=== PATIENT | female | born 1985 | race Caucasian/White ===

== ENCOUNTER 2019-03-06 10:35 | Observation (INO) | payer OTHER ==
[2019-03-06 11:36] VITALS: PULSE 111
[2019-03-06 12:30] LABS: Appearance CLEAR (CLEAR); Bilirubin NEGATIVE (NEGATIVE); Blood NEGATIVE Ery/ul (0-5); Glucose 50 mg/dL (NEGATIVE); Ketones TRACE (NEGATIVE); Leukocyte Esterase NEGATIVE (NEGATIVE); Mucus SLIGHT /HPF (NEGATIVE); Nitrite NEGATIVE (NEGATIVE); Protein,Urine Dip 30 (Negative); Specific Gravity 1.024 (1.005-1.025); Urobilinogen NEGATIVE mg/dL (0-1)
[2019-03-06] MEDS ORDERED: Lactated Ringers 1,000 ML IV SCH (13:00)
[2019-03-06 13:12] LABS: Amphetamine,Urine NEGATIVE (NEGATIVE); Barbiturate,Urine NEGATIVE (NEGATIVE); Benzodiazepine,Urine NEGATIVE (NEGATIVE); Cocaine,Urine NEGATIVE (NEGATIVE); Methadone,Urine NEGATIVE (NEGATIVE); Opiate,Urine NEGATIVE (NEGATIVE); PCP,Urine NEGATIVE (NEGATIVE); THC,Urine NEGATIVE (NEGATIVE)
[2019-03-06 16:33] VITALS: BP 132/60
--- NOTE | 2019-03-06 20:09 | XRAY ---
Indication: labor. Evaluate cervical length and heart rate. 2-dimensional Limited OB ultrasound performed. Comparison: None for this . Triplet . heart rate for baby A is 165 bpm. Baby B is 153 BPM. Baby C is 168 bpm. Cervical length is 3.7 cm. Comment: Preliminary report was given.
== END 2019-03-06 17:08 | disposition home or self-care (01) ==
LOC: OB 10:35
PROVIDERS: ADMIT Family Medicine; ATTEND Family Medicine
DX: O60.03 Preterm labor without delivery, third trimester (principal); O30.103 Triplet pregnancy, unspecified number of placenta and unspecified number of amniotic sacs, third trimester; Z3A.28 28 weeks gestation of pregnancy
CPT/HCPCS: 76817; 80307; 81001; 83986; G0378

== ENCOUNTER 2024-04-18 22:04 | Emergency (ER) | payer OTHER ==
[2024-04-18] MEDS ORDERED: LOPRESSOR INJECTION IV ONE ×2 (22:11→23:27)
--- NOTE | 2024-04-18 22:12 | ERPHSYRPT ---
- History of Present Illness Time Seen by Provider: 04/18/24 22:11 Source: patient, family Exam Limitations: no limitations Physician History: This is a 38-year-old overweight white female patient of Dr. Levin who has been exposed to individuals of family that have had flulike symptoms. Patient states she has been coughing intermittently for 10 days. Patient has not been on a long road trip in a car or flying in a plane. She has no bleeding or clotting disorders. Today, the coughing became more persistent and she felt her heart racing and was short of breath. Patient also feels some chest pressure as well. Patient is allergic to codeine and oxycodone but has taken hydrocodone in the past without any difficulties. Patient is a diabetic on metformin. Patient also states she has generalized arthralgias and myalgias. Timing/Duration: today (Worse today), day(s) (10), worse (Symptoms worse today) Severity of Dyspnea-Max: mild (To moderate) Severity of Dyspnea-Current: mild (To moderate) Possible Cause: no prior episodes Modifying Factors: Improves With: coughing, deep breath Associated Symptoms: anxiety, cough, chest pain/discomfort (Describes as a central, nonradiating pressure) Allergies/Adverse Reactions: codeine [Codeine] Allergy (Verified 04/18/24 22:16) Nausea and Vomiting states during oxycodone Adverse Reaction (Intermediate, Verified 04/18/24 22:16) Nausea and Vomiting Home Medications: Vits W-Ca,Fe,FA(<1Mg) [] 1 tab PO DAILY 07/11/16 [History] Multivitamin [Multivitamins] 1 tab PO DAILY 08/27/16 [History] Hx Tetanus, Diphtheria Vaccination/Date Given: Yes Hx Influenza Vaccination/Date Given: No Hx Pneumococcal Vaccination/Date Given: No Travel Risk - International Travel Have you traveled outside of the country in past 3 weeks: No - Emerging Infectious Disease Are you exhibiting symptoms associated with any current EIDs: Yes Symptoms: Cough: New Onset, Shortness of Breath - Review of Systems Constitutional: No Symptoms Eyes: No Symptoms Ears, Nose, & Throat: No Symptoms Respiratory: Cough, Dyspnea Cardiac: Chest Pain (Described as a pressure), Palpitations (Patient feels her heart racing) Abdominal/Gastrointestinal: No Symptoms Genitourinary Symptoms: No Symptoms Musculoskeletal: Arthralgias, Myalgias Skin: No Symptoms Neurological: No Symptoms Psychological: No Symptoms Endocrine: No Symptoms Hematologic/Lymphatic: No Symptoms Immunological/Allergic: No Symptoms All Other Systems: Reviewed and Negative - Past Medical History Pertinent Past Medical History: No Neurological History: No Pertinent History ENT History: No Pertinent History Cardiac History: No Pertinent History Respiratory History: No Pertinent History Endocrine Medical History: No Pertinent History Musculoskeletal History: Fractures GI Medical History: No Pertinent History History: No Pertinent History Psycho-Social History: No Pertinent History Female Reproductive Disorders: No Pertinent History Other Medical History: back problems after epidural some higher bp during , some high blood sugar during - Past Surgical History Past Surgical History: Yes Neuro Surgical History: No Pertinent History Cardiac: No Pertinent History Respiratory: No Pertinent History Gastrointestinal: Exploratory Laparoscopy Genitourinary: No Pertinent History Musculoskeletal: No Pertinent History Female Surgical History: No Pertinent History Other Surgical History: rt toe surgery--and then pins removed. - Female History Hx Last Menstrual Period: sep 24 - Social History Smoking Status: Never smoker Exposure to second hand smoke: Yes Drug Use: none Patient Lives Alone: No - Nursing Vital Signs Nursing Vital Signs: Initial Vital Signs Temperature 97.9 F 04/18/24 22:07 Pulse Rate 155 H 04/18/24 22:07 Respiratory Rate 22 04/18/24 22:07 Blood Pressure 152/98 04/18/24 22:07 O2 Sat by Pulse Oximetry 98 04/18/24 22:07 Pain Scale Pain Intensity 7 - Physical Exam General Appearance: no apparent distress, alert, anxiety, obese Eye Exam: PERRL/EOMI, eyes nml inspection Ears, Nose, Throat Exam: hearing grossly normal, normal ENT inspection, normal pharynx Neck Exam: normal inspection, non-tender, supple, full range of motion Respiratory Exam: normal breath sounds, lungs clear, airway intact, No chest tenderness, No respiratory distress Cardiovascular/Chest Exam: tachycardia Abdominal/Gastrointestinal Exam: soft, normal bowel sounds, tenderness Rectal Exam: not done Extremity Exam: non-tender, normal range of motion, normal inspection Neurologic Exam: alert, oriented x 3, cooperative, custom dressmaker II-XII nml as tested, nml cerebellar function, nml station & gait, sensation nml Skin Exam: normal color, warm, dry Lymphatic Exam: No adenopathy SpO2 Interpretation: normal O2 Delivery: Room Air - Course Nursing assessment & vital signs reviewed: Yes EKG Interpreted by Me: RATE ([id number]), Sinus Tach, NORMAL AXIS, NORMAL INTERVALS, NORMAL QRS, Other (No acute ischemic changes on today's twelve-lead EKG) Ordered Tests: Active Orders 24 hr Category Date Time Status Library Circulation Assistant STAT Care 04/18/24 22:12 Active EKG-ER Only STAT Care 04/18/24 22:12 Active IV Insertion STAT Care 04/18/24 22:12 Active Pulse Oximetry (ED) STAT Care 04/18/24 22:12 Active CHEST WITH CONTRAST [CT] Stat Exams 04/18/24 23:15 Completed CBC W DIFF Stat Lab 04/18/24 22:10 Completed CMP Stat Lab 04/18/24 22:10 Completed D-DIMER QUANTITATIVE Stat Lab 04/18/24 22:10 Completed Lactic Acid Stat Lab 04/18/24 22:12 Completed MAGNESIUM Stat Lab 04/18/24 22:10 Completed NT PRO BNPII Stat Lab 04/18/24 22:10 Completed TROPONIN Q4H Lab 04/18/24 22:10 Completed TROPONIN Q4H Lab 04/19/24 02:15 Ordered TROPONIN Q4H Lab 04/19/24 06:15 Ordered TSH [TSH, 3RD Generation] Stat Lab 04/19/24 01:20 Ordered UA W/RFX UR CULTURE Stat Lab 04/19/24 00:58 Completed Holter Monitor ONCE RT 04/19/24 00:34 Active Medication Summary Discontinued Medications Generic Name Dose Route Start Last Admin Trade Name Freq PRN Reason Stop Dose Admin Hydrocodone Bitart/Acetaminophen 10 ml 04/18/24 22:13 04/18/24 22:21 Hydrocodone/Acetaminophen 5 Ml Udcup PO 04/18/24 22:14 10 ml STAT STA Administration Hydrocodone Bitart/Acetaminophen Confirm 04/18/24 22:18 Hydrocodone/Acetaminophen 5 Ml Udcup Administered 04/18/24 22:19 Dose 5 ml .ROUTE .STK-MED ONE Hydrocodone Bitart/Acetaminophen Confirm 04/18/24 22:21 Hydrocodone/Acetaminophen 5 Ml Udcup Administered 04/18/24 22:22 Dose 5 ml .ROUTE .STK-MED ONE Methylprednisolone Sodium 0 mg 04/18/24 22:12 04/18/24 22:23 Succinate 125 mg/ Sterile IV 04/18/24 22:13 125 mg Water 2 ml STAT ONE Administration Sodium Chloride 1,000 mls @ 999 mls/hr 04/18/24 23:19 04/18/24 23:31 Sodium Chloride 0.9% 1000 Ml IV 04/19/24 00:19 999 mls/hr .Q1H1M STA Administration Sodium Chloride Confirm 04/18/24 23:27 Sodium Chloride 0.9% 1000 Ml Administered 04/18/24 23:28 Dose 1,000 mls @ ud .ROUTE .STK-MED ONE Methylprednisolone Sodium Succinate Confirm 04/18/24 22:19 Methylprednis Sod Succ 125 Mg/2 Ml Vial Administered 04/18/24 22:20 Dose 125 mg .ROUTE .STK-MED ONE Metoprolol Tartrate 5 mg 04/18/24 22:13 04/18/24 22:14 Metoprolol Tartrate 5 Mg/5 Ml Vial IV 04/18/24 22:14 5 mg STAT ONE Administration Metoprolol Tartrate Confirm 04/18/24 22:11 Metoprolol Tartrate 5 Mg/5 Ml Vial Administered 04/18/24 22:12 Dose 5 mg IV .STK-MED ONE Metoprolol Tartrate 5 mg 04/18/24 23:14 04/18/24 23:30 Metoprolol Tartrate 5 Mg/5 Ml Vial IV 04/18/24 23:15 5 mg STAT ONE Administration Metoprolol Tartrate Confirm 04/18/24 23:27 Metoprolol Tartrate 5 Mg/5 Ml Vial Administered 04/18/24 23:28 Dose 5 mg IV .STK-MED ONE Sterile Water Confirm 04/18/24 22:18 Water For Injection,Sterile 10 Ml Vial Administered 04/18/24 22:19 Dose 10 ml IJ .STK-MED ONE Lab/Rad Data: Laboratory Result Diagrams 04/18/24 22:10 04/18/24 22:10 Laboratory Results 04/19/24 04/18/24 04/18/24 Range/Units 00:58 22:20 22:12 WBC (3.98-10.04) x10^3/uL RBC (3.93-5.22) x10^6/uL Hgb (11.2-15.7) g/dL Hct (34.1-44.9) % MCV (79.4-94.8) fL MCH (25.6-32.2) pg MCHC (32.2-35.5) g/dL RDW (11.7-14.4) % Plt Count (182-369) x10^3/uL MPV (9.4-12.3) fL Gran % (34.0-71.1) % Immature Gran % (Auto) (0.001-0.429) % Nucleat RBC Rel Count (0.00-0.2) % Eos # (Auto) (0.04-0.36) x10^3/uL Immature Gran # (Auto) (0.001-0.031) x10^3u/L Absolute Lymphs (auto) (1.18-3.74) x10^3/uL Absolute Monos (auto) (0.24-0.86) x10^3/uL Absolute Nucleated RBC (0.00-0.012) x10^3u/L Lymphocytes % (19.3-51.7) % Monocytes % (4.7-12.5) % Eosinophils % (0.7-5.8) % Basophils % (0.1-1.2) % Absolute Granulocytes (1.56-6.13) x10^3/uL Basophils # (0.01-0.08) x10^3/uL D-Dimer (0.0-0.50) mg/L Sodium (135-145) mmol/L Potassium (3.5-5.1) mmol/L Chloride (98-107) mmol/L Carbon Dioxide (22-30) mmol/L Anion Gap (5-15) MEQ/L BUN (7-17) mg/dL Creatinine (0.52-1.04) mg/dL Estimated GFR ML/MIN Glucose (74-106) mg/dL Lactic Acid 3.1 H (0.4-2.0) Calcium (8.4-10.2) mg/dL Magnesium (1.6-2.3) mg/dL Total Bilirubin (0.2-1.3) mg/dL AST (14-36) U/L ALT (0-35) U/L Alkaline Phosphatase (38-126) U/L Troponin I (0.000-0.033) ng/mL NT-Pro-B Natriuret Pep (<300) pg/mL Serum Total Protein (6.3-8.2) g/dL Albumin (3.5-5.0) g/dL Urine Color Yellow (Yellow) Urine Appearance Clear (Clear) Urine pH 6.5 (4.6-8.0) Ur Specific [place] <=1.005 (1.005-1.030) Urine Protein Trace A (Negative) Urine Glucose (UA) Negative (Negative) mg/dL Urine Ketones Negative (Negative) Urine Blood Negative (Negative) Urine Nitrite Negative (Negative) Urine Bilirubin Negative (Negative) Urine Urobilinogen 0.2 (0.2) mg/dL Ur Leukocyte Esterase Negative (Negative) U Hyaline Cast (Auto) NONE SEEN (0-2) /LPF Urine Microscopic RBC 0-2 (0-5) /HPF Urine Microscopic WBC 0-2 (0-5) /HPF Ur Epithelial Cells None Seen (None Seen) /HPF Urine Bacteria None Seen (None Seen) /HPF Urine Culture Reflexed NO (NO) Influenza Type A Ag NEGATIVE (NEGATIVE) Influenza Type B Ag NEGATIVE (NEGATIVE) RSV (PCR) NEGATIVE (NEGATIVE) SARS-CoV-2 (PCR) NEGATIVE (NEGATIVE) 04/18/24 04/18/24 04/18/24 Range/Units 22:10 22:10 22:10 WBC (3.98-10.04) x10^3/uL RBC (3.93-5.22) x10^6/uL Hgb (11.2-15.7) g/dL Hct (34.1-44.9) % MCV (79.4-94.8) fL MCH (25.6-32.2) pg MCHC (32.2-35.5) g/dL RDW (11.7-14.4) % Plt Count (182-369) x10^3/uL MPV (9.4-12.3) fL Gran % (34.0-71.1) % Immature Gran % (Auto) (0.001-0.429) % Nucleat RBC Rel Count (0.00-0.2) % Eos # (Auto) (0.04-0.36) x10^3/uL Immature Gran # (Auto) (0.001-0.031) x10^3u/L Absolute Lymphs (auto) (1.18-3.74) x10^3/uL Absolute Monos (auto) (0.24-0.86) x10^3/uL Absolute Nucleated RBC (0.00-0.012) x10^3u/L Lymphocytes % (19.3-51.7) % Monocytes % (4.7-12.5) % Eosinophils % (0.7-5.8) % Basophils % (0.1-1.2) % Absolute Granulocytes (1.56-6.13) x10^3/uL Basophils # (0.01-0.08) x10^3/uL D-Dimer 0.56 H (0.0-0.50) mg/L Sodium 137 (135-145) mmol/L Potassium 4.0 (3.5-5.1) mmol/L Chloride 104 (98-107) mmol/L Carbon Dioxide 21 L (22-30) mmol/L Anion Gap 16.5 H (5-15) MEQ/L BUN 15 (7-17) mg/dL Creatinine 0.78 (0.52-1.04) mg/dL Estimated GFR 100.9 ML/MIN Glucose 162 H (74-106) mg/dL Lactic Acid (0.4-2.0) Calcium 9.2 (8.4-10.2) mg/dL Magnesium 1.9 (1.6-2.3) mg/dL Total Bilirubin 0.30 (0.2-1.3) mg/dL AST 32 (14-36) U/L ALT 38 H (0-35) U/L Alkaline Phosphatase 71 (38-126) U/L Troponin I < 0.012 (0.000-0.033) ng/mL NT-Pro-B Natriuret Pep 48.9 (<300) pg/mL Serum Total Protein 6.8 (6.3-8.2) g/dL Albumin 4.3 (3.5-5.0) g/dL Urine Color (Yellow) Urine Appearance (Clear) Urine pH (4.6-8.0) Ur Specific [place] (1.005-1.030) Urine Protein (Negative) Urine Glucose (UA) (Negative) mg/dL Urine Ketones (Negative) Urine Blood (Negative) Urine Nitrite (Negative) Urine Bilirubin (Negative) Urine Urobilinogen (0.2) mg/dL Ur Leukocyte Esterase (Negative) U Hyaline Cast (Auto) (0-2) /LPF Urine Microscopic RBC (0-5) /HPF Urine Microscopic WBC (0-5) /HPF Ur Epithelial Cells (None Seen) /HPF Urine Bacteria (None Seen) /HPF Urine Culture Reflexed (NO) Influenza Type A Ag (NEGATIVE) Influenza Type B Ag (NEGATIVE) RSV (PCR) (NEGATIVE) SARS-CoV-2 (PCR) (NEGATIVE) 04/18/24 Range/Units 22:10 WBC 12.8 H (3.98-10.04) x10^3/uL RBC 4.85 (3.93-5.22) x10^6/uL Hgb 12.8 (11.2-15.7) g/dL Hct 38.1 (34.1-44.9) % MCV 78.6 L (79.4-94.8) fL MCH 26.4 (25.6-32.2) pg MCHC 33.6 (32.2-35.5) g/dL RDW 13.0 (11.7-14.4) % Plt Count 300 (182-369) x10^3/uL MPV 9.8 (9.4-12.3) fL Gran % 50.3 (34.0-71.1) % Immature Gran % (Auto) 0.5 H (0.001-0.429) % Nucleat RBC Rel Count 0.0 (0.00-0.2) % Eos # (Auto) 0.60 H (0.04-0.36) x10^3/uL Immature Gran # (Auto) 0.06 H (0.001-0.031) x10^3u/L Absolute Lymphs (auto) 4.90 H (1.18-3.74) x10^3/uL Absolute Monos (auto) 0.77 (0.24-0.86) x10^3/uL Absolute Nucleated RBC 0.00 (0.00-0.012) x10^3u/L Lymphocytes % 38.3 (19.3-51.7) % Monocytes % 6.0 (4.7-12.5) % Eosinophils % 4.7 (0.7-5.8) % Basophils % 0.2 (0.1-1.2) % Absolute Granulocytes 6.42 H (1.56-6.13) x10^3/uL Basophils # 0.03 (0.01-0.08) x10^3/uL D-Dimer (0.0-0.50) mg/L Sodium (135-145) mmol/L Potassium (3.5-5.1) mmol/L Chloride (98-107) mmol/L Carbon Dioxide (22-30) mmol/L Anion Gap (5-15) MEQ/L BUN (7-17) mg/dL Creatinine (0.52-1.04) mg/dL Estimated GFR ML/MIN Glucose (74-106) mg/dL Lactic Acid (0.4-2.0) Calcium (8.4-10.2) mg/dL Magnesium (1.6-2.3) mg/dL Total Bilirubin (0.2-1.3) mg/dL AST (14-36) U/L ALT (0-35) U/L Alkaline Phosphatase (38-126) U/L Troponin I (0.000-0.033) ng/mL NT-Pro-B Natriuret Pep (<300) pg/mL Serum Total Protein (6.3-8.2) g/dL Albumin (3.5-5.0) g/dL Urine Color (Yellow) Urine Appearance (Clear) Urine pH (4.6-8.0) Ur Specific [place] (1.005-1.030) Urine Protein (Negative) Urine Glucose (UA) (Negative) mg/dL Urine Ketones (Negative) Urine Blood (Negative) Urine Nitrite (Negative) Urine Bilirubin (Negative) Urine Urobilinogen (0.2) mg/dL Ur Leukocyte Esterase (Negative) U Hyaline Cast (Auto) (0-2) /LPF Urine Microscopic RBC (0-5) /HPF Urine Microscopic WBC (0-5) /HPF Ur Epithelial Cells (None Seen) /HPF Urine Bacteria (None Seen) /HPF Urine Culture Reflexed (NO) Influenza Type A Ag (NEGATIVE) Influenza Type B Ag (NEGATIVE) RSV (PCR) (NEGATIVE) SARS-CoV-2 (PCR) (NEGATIVE) - Progress Progress: improved, re-examined Air Movement: good Progress Note: 04/18/24 22:46 My medical decision making and the assignment of moderate complexity to this patient's medical issue today is based on review the patient's past medical history, review the patient's medication list, review patient drug allergy list, history present illness and physical findings on examination. The workup in this patient includes placement of intravenous line, twelve-lead EKG, provide the patient with intravenous Lopressor, CBC, CMP, provide the patient low rate crystalloid, BNP, D-dimer level, troponin level, magnesium level, and CT scan of the chest with contrast if the D-dimer level returns elevated or chest x-ray if the D-dimer level is normal. Will also order free T4 and TSH levels. In addition, we will order viral swabs. 04/18/24 22:48 Differential diagnosis includes but is not limited to pneumonia, viral illness, myocardial infarction, electrolyte abnormalities, pulmonary embolus. 04/19/24 00:42 I interpreted the patient's laboratory data results. She did have an elevated D-dimer and therefore we ordered a CT scan of the chest with contrast to evaluate for any acute pulmonary issues such as pneumonia and/or pulmonary embolism. We are awaiting the urinalysis study. Clinically, the patient states she feels so much better now that heart rate has slowed down. I interpreted the repeat twelve-lead EKG that was performed on 04/19/2024 at 003 9 in the morning. Heart rate is 102 bpm and is sinus tachycardia with a QTc of 459. There is normal axis, normal intervals and normal QRS. QTc is 459. There is no evidence of any acute ischemia. 04/19/24 01:15 We are still waiting for the urinalysis result. The CT scan of the chest with contrast was interpreted by the radiologist and I reviewed the impression. The impression states no pulmonary embolus. No acute cardiopulmonary abnormality. There is left thyroid hypodense nodule. Ultrasound recommended. These results were discussed with the patient. 04/19/24 01:16 The patient has a heart score less than 4. She will follow-up with her primary care provider and a news broadcaster, if indicated, for further evaluation management. Blood Culture(s) Obtained: No Antibiotics given: No Counseled pt/family regarding: lab results, diagnosis, rad results Medical Desision Making - Independent Historian Additional History obtained from: Spouse - Diagnostic Testing Diagnostic test were ordered, analyzed, and reviewed by me: Yes Radiological Interpretation: Reviewed by me, Teleradiologist Report - Risk of complications Low Risk: Low risk of morbidity from additional dx testing or treatment - Departure Departure Disposition: Home Clinical Impression: Sinus tachycardia, Left thyroid nodule Condition: Stable Critical Care Time: No Critical Care Time(excluding separately billable procedures): Critical 30-74 mins (40 minutes) Referrals: CORIN LEVIN MD [Primary Care Provider] - Follow up/PCP as directed Additional Instructions: Follow directions for the Holter monitor care. Return the Holter monitor as instructed. Continue your medications as prescribed. Call your primary care provider today, 04/19/2024, to make arrangements for outpatient evaluation by both your primary care provider and, if indicated, a news broadcaster.
[2024-04-18] MEDS: LOPRESSOR INJECTION IV ONE ×2 (22:14→23:30)
[2024-04-18] MEDS ORDERED: HYDROCODONE-ACETAMIN 2.5-108/5 ML SOLUTION ONE ×2 (22:18→22:21)
[2024-04-18] MEDS ORDERED: Sterile H2O 10 ml IJ ONE (22:18)
[2024-04-18 22:19] VITALS: TEMP 97.9
[2024-04-18] MEDS ORDERED: solu-MEDROL ONE (22:19)
[2024-04-18] MEDS: HYDROCODONE-ACETAMIN 2.5-108/5 ML SOLUTION PO STA (22:21)
[2024-04-18] MEDS: solu-MEDROL 125 MG, Sterile H2O 10 ml 2 ML IV ONE (22:23)
[2024-04-18 22:24] LABS: Absolute Neutrophil Ct (ANC) 6.42 x10^3/uL (1.56-6.13); BASOPHIL % 0.2 % (0.1-1.2); Basophil (Absolute #) 0.03 x10^3/uL (0.01-0.08); Eosinophil % 4.7 % (0.7-5.8); Hematocrit 38.1 % (34.1-44.9); Hemoglobin 12.8 g/dL (11.2-15.7); IMMATURE GRAN # 0.06 x10^3u/L (0.001-0.031); IMMATURE GRAN % 0.5 % (0.001-0.429); Lymphocytes % 38.3 % (19.3-51.7); Mean Cell Volume 78.6 fL (79.4-94.8); Mean Corpuscular Hemoglobin 26.4 pg (25.6-32.2); Mean Corpuscular Hgb Concent. 33.6 g/dL (32.2-35.5); Mean Platelet Volume 9.8 fL (9.4-12.3); Monocyte (Absolute #) 0.77 x10^3/uL (0.24-0.86); Neutrophil % 50.3 % (34.0-71.1); Platelet Count 300 x10^3/uL (182-369); Red Blood Count 4.85 x10^6/uL (3.93-5.22); White Blood Count 12.8 x10^3/uL (3.98-10.04)
[2024-04-18 22:49] LABS: ALBUMIN 4.3 g/dL (3.5-5.0); ANION GAP 16.5 MEQ/L (5-15); BILIRUBIN,TOTAL 0.3 mg/dL (0.2-1.3); Calcium 9.2 mg/dL (8.4-10.2); Creatinine 1 0.78 mg/dL (0.52-1.04); EST GLOMERULAR FILTRATION RATE 100.9 ML/MIN; MAGNESIUM 1.9 mg/dL (1.6-2.3); NT PRO BNPII 48.9 pg/mL (<300); Total Protein 6.8 g/dL (6.3-8.2)
[2024-04-18 23:01] LABS: INFLUENZA A NEGATIVE (NEGATIVE); INFLUENZA B NEGATIVE (NEGATIVE); RESPIRATORY SYNCTIAL VIRUS NEGATIVE (NEGATIVE); SARS-CoV-2 Xpert Express NEGATIVE (NEGATIVE)
[2024-04-18] MEDS ORDERED: Sodium Chloride 0.9% 1000 ML 1,000 ML ONE (23:27)
[2024-04-18] MEDS: Sodium Chloride 0.9% 1000 ML 1,000 ML IV STA (23:31)
--- NOTE | 2024-04-19 01:13 | XRAY ---
CLINICAL HISTORY: CP; tachycardia; D-dimer elevated COMPARISON: none TECHNIQUE: Contiguous axial CT angiographic images of the chest were acquired with the administration of 100cc isovue-370 intravenous contrast with PE protocol. One of these 3D techniques was utilized: Maximum Intensity Pixel (MIP), 3D Reconstructed Images, Volume Rendered Images, Surface Shaded Rendering. One of the following dose reduction techniques were utilized for this exam: Automated exposure control, adjustment of the mA and/or kV according to patient size, use of iterative reconstruction?. FINDINGS: No evidence of any filling defect in the main pulmonary trunk, bilateral main pulmonary arteries, segmental arteries and subsegmental arteries to suggest acute or chronic pulmonary embolism. Patent thoracic aorta showing. No intraluminal hypodense thrombi, dissecting intimal flaps or significant aneurysmal dilatation. No obvious cardiac abnormalities detected. No obvious ground glass opacities, pulmonary masses or consolidations. No pleural or pericardial sac collections. No pathologically enlarged hilar or mediastinal lymph nodes are noted. Left thyroid lobe hypodense nodule. Advise sonography correlation. Scanned osseous structures show spondylosis. No osseous destruction. Scanned upper abdominal cuts show no obvious abnormalities. IMPRESSION: 1. No evidence of pulmonary arterial thromboembolism. 2. No acute cardiopulmonary abnormalities. 3. Left thyroid lobe hypodense nodule. Advise sonography correlation. Electronically Signed by: Leeann Noyola MD. (04/19/2024 01:09:23 EDT)
[2024-04-19 01:17] VITALS: PULSE 94; RESP 19
[2024-04-19 01:24] LABS: Appearance Clear (Clear); Bacteria None Seen /HPF (None Seen); Bilirubin Negative (Negative); Blood Negative (Negative); Epithelial Cells None Seen /HPF (None Seen); Glucose, Urine Negative (Negative); Hyaline Casts NONE SEEN /LPF (0-2); Ketones Negative (Negative); Leukocyte Esterase Negative (Negative); Nitrite Negative (Negative); Ph 6.5 (4.6-8.0); Protein,Urine Dip Trace (Negative); RBC 0-2 /HPF (0-5); Specific Gravity <=1.005 (1.005-1.030); Urobilinogen 0.2 mg/dL (0.2); WBC 0-2 /HPF (0-5)
[2024-04-19 01:26] LABS: ADD URINE CULTURE? NO (NO)
[2024-04-19 02:10] VITALS: BP 134/75; O2SAT 96
== END 2024-04-19 02:27 | disposition home or self-care (01) ==
LOC: ED 22:04
DX: R00.0 Tachycardia, unspecified (principal); E04.1 Nontoxic single thyroid nodule; R05.1 Acute cough; R07.9 Chest pain, unspecified; M79.10 Myalgia, unspecified site; M25.50 Pain in unspecified joint; E11.9 Type 2 diabetes mellitus without complications; Z79.84 Long term (current) use of oral hypoglycemic drugs; Z79.899 Other long term (current) drug therapy
CPT/HCPCS: 0241U; 36000; 36415; 71260; 80053; 81001; 83605; 83735; 83880; 84439; 84443; 84484; 85025; 85379; 93005; 93041; 94760; 96374; 96375; 96376; 99285; 99291; J2919; A9270-GY

== ENCOUNTER 2025-01-07 20:12 | Emergency (ER) | payer OTHER ==
--- NOTE | 2025-01-07 20:18 | ERPHSYRPT ---
- History of Present Illness Time Seen by Provider: 01/07/25 20:17 Source: patient, family Exam Limitations: no limitations Physician History: This is an overweight 39-year-old white female patient of Dr. Levin who arrives by private vehicle with the complaint of shortness of breath while driving home after work. It came on suddenly. She also complains of left-sided headache and numbness in her bilateral upper extremities. She is under stress but no more than typical for her. Her oldest child is in trouble legally. Patient did start a new thyroid medicine approximately 1 month ago. Patient has a history of hypertension, diabetes and thyroid abnormalities. Patient had similar symptoms in April 2024 and at that time she had sinus tachycardia and hypertension. In October 2024 she underwent a thyroid ultrasound which showed 2 right lobe and 1 left lobe indeterminate nodule. In April 2024 she underwent an echocardiogram which did show a patent ovale and a normal left ventricular ejection fraction of 85%. In April [address] scan of the chest with contrast which shows no pulmonary embolus and no acute cardiopulmonary abnormalities. Her room air oxygen saturation levels 97 to 98%. Timing/Duration: today Severity of Dyspnea-Max: mild Severity of Dyspnea-Current: mild Possible Cause: occasional episodes Modifying Factors: Improves With: nothing Associated Symptoms: anxiety, chest pain/discomfort, tingling face, tingling hands Allergies/Adverse Reactions: codeine [Codeine] Allergy (Verified 04/18/24 22:16) Nausea and Vomiting states during oxycodone Adverse Reaction (Intermediate, Verified 04/18/24 22:16) Nausea and Vomiting Home Medications: Multivitamin [Multivitamins] 1 tab PO DAILY 08/27/16 [History] Metformin HCl 500 mg [Glucophage 500 MG] 500 mg PO BIDWM 01/07/25 [History] Methimazole 2.5 mg PO DAILY 01/07/25 [History] Metoprolol Succinate 25 mg Xl* [Toprol-Xl 25MG Tablets] 25 mg PO DAILY 01/07/25 [History] Hx Tetanus, Diphtheria Vaccination/Date Given: Yes Hx Influenza Vaccination/Date Given: No Hx Pneumococcal Vaccination/Date Given: No Travel Risk - International Travel Have you traveled outside of the country in past 3 weeks: No - Emerging Infectious Disease Are you exhibiting symptoms associated with any current EIDs: Yes Symptoms: Cough: New Onset, Shortness of Breath - Review of Systems Constitutional: No Symptoms Eyes: No Symptoms Ears, Nose, & Throat: No Symptoms Respiratory: No Symptoms Cardiac: No Symptoms Abdominal/Gastrointestinal: No Symptoms Genitourinary Symptoms: No Symptoms Musculoskeletal: No Symptoms Skin: No Symptoms Neurological: Headache (Left side headache), Other (Tingling bilateral cheeks and bilateral upper extremities) Psychological: No Symptoms Endocrine: No Symptoms Hematologic/Lymphatic: No Symptoms Immunological/Allergic: No Symptoms All Other Systems: Reviewed and Negative - Past Medical History Pertinent Past Medical History: No Neurological History: No Pertinent History ENT History: No Pertinent History Cardiac History: No Pertinent History Respiratory History: No Pertinent History Endocrine Medical History: No Pertinent History Musculoskeletal History: Fractures GI Medical History: No Pertinent History History: No Pertinent History Psycho-Social History: No Pertinent History Female Reproductive Disorders: No Pertinent History Other Medical History: back problems after epidural some higher bp during , some high blood sugar during - Past Surgical History Past Surgical History: Yes Neuro Surgical History: No Pertinent History Cardiac: No Pertinent History Respiratory: No Pertinent History Gastrointestinal: Exploratory Laparoscopy Genitourinary: No Pertinent History Musculoskeletal: No Pertinent History Female Surgical History: No Pertinent History Other Surgical History: rt toe surgery--and then pins removed. - Female History Hx Last Menstrual Period: sep 24 - Social History Smoking Status: Never smoker Exposure to second hand smoke: Yes Drug Use: none Patient Lives Alone: No - Nursing Vital Signs Nursing Vital Signs: Initial Vital Signs Pulse Rate 104 H 01/07/25 20:13 Respiratory Rate 26 H 01/07/25 20:13 Blood Pressure 161/101 01/07/25 20:13 O2 Sat by Pulse Oximetry 100 01/07/25 20:13 Pain Scale Pain Intensity 0 - Physical Exam General Appearance: no apparent distress, alert, anxiety, obese Eye Exam: PERRL/EOMI, eyes nml inspection Ears, Nose, Throat Exam: hearing grossly normal, normal ENT inspection, normal pharynx Neck Exam: normal inspection, non-tender, supple, full range of motion Respiratory Exam: normal breath sounds, lungs clear, airway intact, No chest tenderness, No respiratory distress Cardiovascular/Chest Exam: normal heart sounds, regular rate/rhythm Abdominal/Gastrointestinal Exam: soft, normal bowel sounds, No tenderness Rectal Exam: not done Extremity Exam: non-tender, normal range of motion, normal inspection, normal capillary refill, no calf tenderness, no pedal edema, pelvis stable Neurologic Exam: alert, oriented x 3, cooperative, fish dressing machine feeder II-XII nml as tested, nml cerebellar function, nml station & gait, sensation nml Skin Exam: normal color, warm, dry Lymphatic Exam: No adenopathy SpO2 Interpretation: normal SpO2: 100 O2 Delivery: Room Air - Course Nursing assessment & vital signs reviewed: Yes EKG Interpreted by Me: RATE (102), Sinus Tach, NORMAL AXIS, NORMAL INTERVALS, NORMAL QRS, NORMAL ST-T, Other (No acute ischemia on today's twelve-lead EKG. QTc is 467. Comparison EKG dated 04/18/2024. Today's EKG shows improvement over the sinus tachycardia that was present on the 04/18/2024 twelve-lead EKG.) Ordered Tests: Active Orders 24 hr Category Date Time Status EKG-ER Only STAT Care 01/07/25 20:41 Active IV Insertion STAT Care 01/07/25 20:41 Active HEAD WITHOUT CONTRAST [CT] Stat Exams 01/07/25 21:46 Completed CBC W DIFF Stat Lab 01/07/25 20:49 Completed CMP Stat Lab 01/07/25 20:51 Completed CULTURE,URINE Stat Lab 01/07/25 21:33 Received D-DIMER QUANTITATIVE Stat Lab 01/07/25 20:51 Completed MAG [MAGNESIUM] Stat Lab 01/07/25 20:51 Completed NT PRO BNPII Stat Lab 01/07/25 20:51 Completed TROPONIN Q4H Lab 01/07/25 20:51 Completed TROPONIN Q4H Lab 01/08/25 00:45 Ordered TROPONIN Q4H Lab 01/08/25 04:45 Ordered TSH [TSH, 3RD Generation] Stat Lab 01/07/25 20:51 Completed UA W/RFX UR CULTURE Stat Lab 01/07/25 21:33 Completed Medication Summary Discontinued Medications Generic Name Dose Route Start Last Admin Trade Name Freq PRN Reason Stop Dose Admin Ceftriaxone Sodium 1 gm in 100 mls @ 200 mls/hr 01/07/25 21:52 01/07/25 22:38 Rocephin 1 Gm / 100 Ml Nacl IV 01/07/25 22:21 Infused STAT ONE Infusion Ceftriaxone Sodium Confirm 01/07/25 21:55 Rocephin 1 Gm / 100 Ml Nacl Administered 01/07/25 21:56 Dose 1 gm in 100 mls @ ud IV .STK-MED ONE Lab/Rad Data: Laboratory Result Diagrams 01/07/25 20:49 01/07/25 20:51 Laboratory Results 01/07/25 01/07/25 01/07/25 Range/Units 21:33 20:51 20:51 WBC (3.98-10.04) x10^3/uL RBC (3.93-5.22) x10^6/uL Hgb (11.2-15.7) g/dL Hct (34.1-44.9) % MCV (79.4-94.8) fL MCH (25.6-32.2) pg MCHC (32.2-35.5) g/dL RDW (11.7-14.4) % Plt Count (182-369) x10^3/uL MPV (9.4-12.3) fL Gran % (34.0-71.1) % Immature Gran % (Auto) (0.001-0.429) % Nucleat RBC Rel Count (0.00-0.2) % Eos # (Auto) (0.04-0.36) x10^3/uL Immature Gran # (Auto) (0.001-0.031) x10^3u/L Absolute Lymphs (auto) (1.18-3.74) x10^3/uL Absolute Monos (auto) (0.24-0.86) x10^3/uL Absolute Nucleated RBC (0.00-0.012) x10^3u/L Lymphocytes % (19.3-51.7) % Monocytes % (4.7-12.5) % Eosinophils % (0.7-5.8) % Basophils % (0.1-1.2) % Absolute Granulocytes (1.56-6.13) x10^3/uL Basophils # (0.01-0.08) x10^3/uL D-Dimer (0.0-0.50) mg/L Sodium (135-145) mmol/L Potassium (3.5-5.1) mmol/L Chloride (98-107) mmol/L Carbon Dioxide (22-30) mmol/L Anion Gap (5-15) MEQ/L BUN (7-17) mg/dL Creatinine (0.52-1.04) mg/dL Estimated GFR ML/MIN Glucose (74-106) mg/dL Calcium (8.4-10.2) mg/dL Magnesium (1.6-2.3) mg/dL Total Bilirubin (0.2-1.3) mg/dL AST (14-36) U/L ALT (0-35) U/L Alkaline Phosphatase (38-126) U/L Troponin I (0.000-0.033) ng/mL NT-Pro-B Natriuret Pep (<300) pg/mL Serum Total Protein (6.3-8.2) g/dL Albumin (3.5-5.0) g/dL Free T4 0.90 (0.78-2.19) ng/dL TSH 3rd Generation 2.103 (0.470-4.680) mIU/L Urine Color Red A (Yellow) Urine Appearance Clear (Clear) Urine pH 7.0 (4.6-8.0) Ur Specific Richards 1.010 (1.005-1.030) Urine Protein 30 (Negative) Urine Glucose (UA) Negative (Negative) mg/dL Urine Ketones Negative (Negative) Urine Blood Large A (Negative) Urine Nitrite Negative (Negative) Urine Bilirubin Negative (Negative) Urine Urobilinogen 0.2 (0.2) mg/dL Ur Leukocyte Esterase Trace A (Negative) U Hyaline Cast (Auto) NONE SEEN (0-2) /LPF Urine Microscopic RBC >100 A (0-5) /HPF Urine Microscopic WBC 6-10 A (0-5) /HPF Ur Epithelial Cells Rare (None Seen) /HPF Urine Bacteria None Seen (None Seen) /HPF Urine Culture Reflexed YES (NO) 01/07/25 01/07/25 01/07/25 Range/Units 20:51 20:51 20:51 WBC (3.98-10.04) x10^3/uL RBC (3.93-5.22) x10^6/uL Hgb (11.2-15.7) g/dL Hct (34.1-44.9) % MCV (79.4-94.8) fL MCH (25.6-32.2) pg MCHC (32.2-35.5) g/dL RDW (11.7-14.4) % Plt Count (182-369) x10^3/uL MPV (9.4-12.3) fL Gran % (34.0-71.1) % Immature Gran % (Auto) (0.001-0.429) % Nucleat RBC Rel Count (0.00-0.2) % Eos # (Auto) (0.04-0.36) x10^3/uL Immature Gran # (Auto) (0.001-0.031) x10^3u/L Absolute Lymphs (auto) (1.18-3.74) x10^3/uL Absolute Monos (auto) (0.24-0.86) x10^3/uL Absolute Nucleated RBC (0.00-0.012) x10^3u/L Lymphocytes % (19.3-51.7) % Monocytes % (4.7-12.5) % Eosinophils % (0.7-5.8) % Basophils % (0.1-1.2) % Absolute Granulocytes (1.56-6.13) x10^3/uL Basophils # (0.01-0.08) x10^3/uL D-Dimer 0.53 H (0.0-0.50) mg/L Sodium 138 (135-145) mmol/L Potassium 4.0 (3.5-5.1) mmol/L Chloride 104 (98-107) mmol/L Carbon Dioxide 21 L (22-30) mmol/L Anion Gap 17.1 H (5-15) MEQ/L BUN 8 (7-17) mg/dL Creatinine 0.66 (0.52-1.04) mg/dL Estimated GFR 115.8 ML/MIN Glucose 107 H (74-106) mg/dL Calcium 9.3 (8.4-10.2) mg/dL Magnesium 2.0 (1.6-2.3) mg/dL Total Bilirubin 0.30 (0.2-1.3) mg/dL AST 34 (14-36) U/L ALT 36 H (0-35) U/L Alkaline Phosphatase 107 (38-126) U/L Troponin I < 0.012 (0.000-0.033) ng/mL NT-Pro-B Natriuret Pep 24.7 (<300) pg/mL Serum Total Protein 6.8 (6.3-8.2) g/dL Albumin 4.4 (3.5-5.0) g/dL Free T4 (0.78-2.19) ng/dL TSH 3rd Generation (0.470-4.680) mIU/L Urine Color (Yellow) Urine Appearance (Clear) Urine pH (4.6-8.0) Ur Specific Richards (1.005-1.030) Urine Protein (Negative) Urine Glucose (UA) (Negative) mg/dL Urine Ketones (Negative) Urine Blood (Negative) Urine Nitrite (Negative) Urine Bilirubin (Negative) Urine Urobilinogen (0.2) mg/dL Ur Leukocyte Esterase (Negative) U Hyaline Cast (Auto) (0-2) /LPF Urine Microscopic RBC (0-5) /HPF Urine Microscopic WBC (0-5) /HPF Ur Epithelial Cells (None Seen) /HPF Urine Bacteria (None Seen) /HPF Urine Culture Reflexed (NO) 01/07/25 Range/Units 20:49 WBC 8.9 (3.98-10.04) x10^3/uL RBC 5.12 (3.93-5.22) x10^6/uL Hgb 12.7 (11.2-15.7) g/dL Hct 39.2 (34.1-44.9) % MCV 76.6 L (79.4-94.8) fL MCH 24.8 L (25.6-32.2) pg MCHC 32.4 (32.2-35.5) g/dL RDW 14.4 (11.7-14.4) % Plt Count 295 (182-369) x10^3/uL MPV 10.2 (9.4-12.3) fL Gran % 39.3 (34.0-71.1) % Immature Gran % (Auto) 0.2 (0.001-0.429) % Nucleat RBC Rel Count 0.0 (0.00-0.2) % Eos # (Auto) 0.51 H (0.04-0.36) x10^3/uL Immature Gran # (Auto) 0.02 (0.001-0.031) x10^3u/L Absolute Lymphs (auto) 4.12 H (1.18-3.74) x10^3/uL Absolute Monos (auto) 0.70 (0.24-0.86) x10^3/uL Absolute Nucleated RBC 0.00 (0.00-0.012) x10^3u/L Lymphocytes % 46.5 (19.3-51.7) % Monocytes % 7.9 (4.7-12.5) % Eosinophils % 5.8 (0.7-5.8) % Basophils % 0.3 (0.1-1.2) % Absolute Granulocytes 3.48 (1.56-6.13) x10^3/uL Basophils # 0.03 (0.01-0.08) x10^3/uL D-Dimer (0.0-0.50) mg/L Sodium (135-145) mmol/L Potassium (3.5-5.1) mmol/L Chloride (98-107) mmol/L Carbon Dioxide (22-30) mmol/L Anion Gap (5-15) MEQ/L BUN (7-17) mg/dL Creatinine (0.52-1.04) mg/dL Estimated GFR ML/MIN Glucose (74-106) mg/dL Calcium (8.4-10.2) mg/dL Magnesium (1.6-2.3) mg/dL Total Bilirubin (0.2-1.3) mg/dL AST (14-36) U/L ALT (0-35) U/L Alkaline Phosphatase (38-126) U/L Troponin I (0.000-0.033) ng/mL NT-Pro-B Natriuret Pep (<300) pg/mL Serum Total Protein (6.3-8.2) g/dL Albumin (3.5-5.0) g/dL Free T4 (0.78-2.19) ng/dL TSH 3rd Generation (0.470-4.680) mIU/L Urine Color (Yellow) Urine Appearance (Clear) Urine pH (4.6-8.0) Ur Specific Richards (1.005-1.030) Urine Protein (Negative) Urine Glucose (UA) (Negative) mg/dL Urine Ketones (Negative) Urine Blood (Negative) Urine Nitrite (Negative) Urine Bilirubin (Negative) Urine Urobilinogen (0.2) mg/dL Ur Leukocyte Esterase (Negative) U Hyaline Cast (Auto) (0-2) /LPF Urine Microscopic RBC (0-5) /HPF Urine Microscopic WBC (0-5) /HPF Ur Epithelial Cells (None Seen) /HPF Urine Bacteria (None Seen) /HPF Urine Culture Reflexed (NO) - Progress Progress: improved, re-examined Air Movement: good Progress Note: 01/07/25 21:03 My medical decision making and the assignment of moderate complexity is based on review of the patient's past medical history, review the patient's medication list, review of patient drug allergy list, history present illness and physical findings on examination. The workup in this patient includes placement of intravenous line, CBC, CMP, BNP, D-dimer level, troponin level, twelve-lead EKG, magnesium level, urinalysis, free T4 and TSH, we will also order a CT scan of the head without contrast and we will wait for the D-dimer level to determine whether the patient will need a CT scan with contrast or without contrast. Differential diagnosis includes but is not limited to thyroid abnormalities, anxiety about health, electrolyte abnormalities, urinary tract infection, dehydration, acute intracranial abnormality, myocardial infarction 01/08/25 00:09 I interpreted the patient's laboratory data results. Based on the laboratory data results, the patient has a urinary tract infection. The CT scan of the head without contrast was interpreted by the radiologist and I reviewed the impression. The impression states no acute intracranial abnormality. 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 There is evidence of right maxillary and bilateral ethmoid sinusitis Blood Culture(s) Obtained: No Antibiotics given: Yes Counseled pt/family regarding: lab results, diagnosis, need for follow-up, rad results Medical Desision Making - Diagnostic Testing Diagnostic test were ordered, analyzed, and reviewed by me: Yes Radiological Interpretation: Reviewed by me, Teleradiologist Report - Risk of complications The pt has a mod risk of morbidity or mortality based on: Need for prescription drug management - Departure Departure Disposition: Home Clinical Impression: UTI (urinary tract infection), Sinusitis Condition: Stable Critical Care Time: No Referrals: CORIN LEVIN MD [Primary Care Provider, [facility]] - Follow up/PCP as directed Additional Instructions: Drink plenty of clear liquids. Take your antibiotics and other medications as prescribed. Call your prescribing provider on 01/09/2025, to make arrangements for follow-up appointment to be seen in the next 3 to 5 days. Prescriptions: Cefdinir 300 mg PO BID #14 cap
[2025-01-07 20:49] LABS: Absolute Neutrophil Ct (ANC) 3.48 x10^3/uL (1.56-6.13); BASOPHIL % 0.3 % (0.1-1.2); Basophil (Absolute #) 0.03 x10^3/uL (0.01-0.08); Eosinophil % 5.8 % (0.7-5.8); Eosinophil (Absolute #) 0.51 x10^3/uL (0.04-0.36); Hematocrit 39.2 % (34.1-44.9); Hemoglobin 12.7 g/dL (11.2-15.7); IMMATURE GRAN # 0.02 x10^3u/L (0.001-0.031); IMMATURE GRAN % 0.2 % (0.001-0.429); Lymphocyte (Absolute #) 4.12 x10^3/uL (1.18-3.74); Lymphocytes % 46.5 % (19.3-51.7); Mean Cell Volume 76.6 fL (79.4-94.8); Mean Corpuscular Hemoglobin 24.8 pg (25.6-32.2); Mean Corpuscular Hgb Concent. 32.4 g/dL (32.2-35.5); Mean Platelet Volume 10.2 fL (9.4-12.3); Monocytes % 7.9 % (4.7-12.5); Neutrophil % 39.3 % (34.0-71.1); Platelet Count 295 x10^3/uL (182-369); Red Blood Count 5.12 x10^6/uL (3.93-5.22); Red Cell Distribution Width 14.4 % (11.7-14.4); White Blood Count 8.9 x10^3/uL (3.98-10.04)
[2025-01-07 21:22] LABS: ALBUMIN 4.4 g/dL (3.5-5.0); ANION GAP 17.1 MEQ/L (5-15); BILIRUBIN,TOTAL 0.3 mg/dL (0.2-1.3); Calcium 9.3 mg/dL (8.4-10.2); Creatinine 1 0.66 mg/dL (0.52-1.04); EST GLOMERULAR FILTRATION RATE 115.8 ML/MIN; NT PRO BNPII 24.7 pg/mL (<300); Total Protein 6.8 g/dL (6.3-8.2)
[2025-01-07 21:46] LABS: Appearance Clear (Clear); Bacteria None Seen /HPF (None Seen); Bilirubin Negative (Negative); Blood Large (Negative); Epithelial Cells Rare /HPF (None Seen); Glucose, Urine Negative (Negative); Hyaline Casts NONE SEEN /LPF (0-2); Ketones Negative (Negative); Leukocyte Esterase Trace (Negative); Nitrite Negative (Negative); Protein,Urine Dip 30 (Negative); RBC >100 /HPF (0-5); Urobilinogen 0.2 mg/dL (0.2)
[2025-01-07] MEDS ORDERED: ROCEPHIN 1 GM / 100 ML NaCl 1 GM/100 ML IVPB IV ONE (21:55)
[2025-01-07] MEDS: ROCEPHIN 1 GM / 100 ML NaCl 1 GM/100 ML IVPB IV ONE (21:56)
--- NOTE | 2025-01-08 00:03 | XRAY ---
CLINICAL HISTORY: Headache; BUE numbness COMPARISON: None. TECHNIQUE: Axial non-contrast CT scan of the brain was performed from the skull base to the high parietal region. One of the following dose reduction techniques were utilized for this exam: Automated exposure control, adjustment of the mA and/or kV according to patient size, use of iterative reconstruction. 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 No evidence of acute infarct, hemorrhage, or mass effect. No abnormal areas of hypo- or hyperattenuation. Ventricular System: Ventricles are normal in size and configuration. No evidence of hydrocephalus or ventricular enlargement. Subarachnoid Spaces: Normal sulci and cisterns. No evidence of subarachnoid hemorrhage or extra-axial fluid collections. Cerebellum and Brainstem: Normal size and signal. No masses, lesions, or areas of abnormal density. Orbits: Normal appearance of the globes, optic nerves, and extraocular muscles. No evidence of orbital masses or abnormal density. Sinuses: Fluid densities in right maxillary and bilateral ethmoid sinuses signifying sinusitis. Deviated nasal septum with convexity towards right side. Mastoid Air Cells: Clear mastoid air cells. No evidence of mastoiditis. Skull: Normal skull morphology. IMPRESSION: 1. No acute intracranial abnormality is seen. 2. 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 3. Right maxillary and bilateral ethmoid sinusitis. 4. Clinical correlation and further evaluation with MRI as clinically indicated. Electronically Signed by: Leeann Noyola MD. (01/07/2025 23:58:26 EDT)
[2025-01-08 00:37] VITALS: BP 132/78; PULSE 81; RESP 18; O2SAT 98
== END 2025-01-08 00:38 | disposition home or self-care (01) ==
LOC: ED 20:12
DX: N39.0 Urinary tract infection, site not specified (principal); J32.8 Other chronic sinusitis; R06.02 Shortness of breath; R51.9 Headache, unspecified; R20.2 Paresthesia of skin; Z79.84 Long term (current) use of oral hypoglycemic drugs; Z79.899 Other long term (current) drug therapy
CPT/HCPCS: 36415; 70450; 80053; 81001; 83735; 83880; 84439; 84443; 84484; 85025; 85379; 87086; 93005; 96365; 99285; J0696